=== PATIENT | male | born 1995 | race African-American/Black ===

== ENCOUNTER 2025-01-30 15:44 | Emergency (ER) | payer MEDICAID ==
[~2025-01-30] VITALS: Ht 193 cm; Wt 99.7 kg
[2025-01-30 15:45] VITALS: PULSE 69; RESP 20; O2SAT 100
[2025-01-30 15:50] VITALS: BP 131/60; TEMP 36.6; O2SAT 100
== END 2025-01-30 17:31 | disposition left against medical advice (07) ==
LOC: ER 15:53
DX: R10.9 Unspecified abdominal pain (principal); R42 Dizziness and giddiness; Z53.21 Procedure and treatment not carried out due to patient leaving prior to being seen by health care provider